=== PATIENT | female | born 1995 | race Caucasian/White ===

== ENCOUNTER 2019-06-21 17:29 | Emergency (ER) | payer BC, SELFPAY ==
[2019-06-21 17:32] VITALS: BP 122/76; PULSE 86; RESP 20; TEMP 36.9; O2SAT 100
[2019-06-21 18:00] VITALS: RESP 20
[2019-06-21] MEDS: LORazepam 2 MG/ML VIAL 1 MG IM/IV (18:21)
[2019-06-21 19:06] LABS: Abs Immature Grans 0.01 k/cumm (0.0-0.09); Absolute Basophil Count 0.02 k/cumm (0.0-0.2); Absolute Eosinophil Count 0.08 k/cumm (0.0-0.7); Absolute Lymphocyte Count 2.19 k/cumm (1.2-3.4); Absolute Monocyte Count 0.55 k/cumm (0.11-0.7); Absolute Neutrophil Count 3.34 k/cumm (1.2-6.7); Basophils % 0.3; Eosinophils % 1.3; HCT 40.3 % (36.0-46.0); HGB 13.9 g/dL (12.0-15.5); Immature Grans % 0.2; Lymphocytes % 35.4; Mean Corp. HGB Concentration 34.5 g/dL (32.0-36.0); Mean Corpuscular Hemoglobin 32.9 pg (27.0-33.0); Mean Corpuscular Volume 95.3 fL (80-95); Mean Platelet Volume 10.3 fL (8.0-11.0); Monocytes % 8.9; Neutrophils % 53.9; Platelet Count 274 x1000/uL (130-400); RBC 4.23 m/cumm (4.00-5.20); RBC Distribution Width 12.2 % (11.7-14.6); White Blood Cell Count 6.19 k/cumm (4.4-10.8)
[2019-06-21 19:12] LABS: Bilirubin Negative (Negative); Blood Negative (Negative); Clarity Clear (Clear); Glucose Negative (Negative); Ketones Negative (Negative); Leukocyte Esterase Negative (Negative); Nitrite Negative (Negative); Specific Gravity 1.015 (1.005-1.025); Urobilinogen 0.2 EU/dL (Up TO 0.2)
[2019-06-21 19:39] LABS: ALT 20 U/L (14-59); AST 12 U/L (15-37); Alkaline Phosphatase 77 U/L (46-116); Anion Gap 12.4 mmol/L (3-11); BUN 8 mg/dL (7-18); Bilirubin, Total 0.2 mg/dL (0.2-1.0); CO2 22.6 mmol/L (21.0-32.0); CREATININE 0.79 mg/dL (0.55-1.02); Calcium 9.1 mg/dL (8.5-10.1); Chloride 108 mmol/L (98-107); Glucose 94 mg/dL (70-100); Magnesium 1.8 mg/dL (1.8-2.4); Potassium 3.6 mmol/L (3.5-5.1); Sodium 143 mmol/L (136-145); TSH (W/Ref FT4) 2.23 uIU/mL (0.36-3.74); Total Protein 7.9 g/dL (6.4-8.2)
[2019-06-21 19:40] LABS: Troponin I < 0.05 ng/mL (0.00-0.06)
--- NOTE | 2019-06-21 19:53 | ED.GENADUL_ITS ---
Discharge Plan Disposition Patient Disposition: HOME Condition: Improving Discharge Details Chief Complaint: Anxiety Clinical Impression: Panic attack Primary Care Provider: None,None ED Provider: Ravinder Stephens Home Meds and New Rx's Prescriptions: New lorazepam [Ativan] 1 mg tablet 1 mg PO DAILY PRN (Reason: anxiety) Qty: 1 RF: 0 Continued venlafaxine [Effexor XR] 75 mg Capsule,Extended Release 24hr 75 mg PO DAILY RF: 0 zolpidem [Ambien] 10 mg Tablet 10 mg PO HS RF: 0 Nexplanon 68 mg Implant 68 mg SUBDERMAL RF: 0 Discharge Instructions Instructions: Panic Attack (ED) Additional Instructions: Please continue to take your medication as prescribed and use as needed Ativan for severe panic attack. Feel free to return to the emergency department for any new or significant worsening of symptoms otherwise follow-up with a primary care provider when you return home. Referrals: Primary Care Provider [Outside] - 1 week (Follow-up with a local primary care provider for reassessment of your panic disorder to see if you need any change in your medications.) Discharge Data Discharge Date/Time-TO BE ENTERED AT DEPARTURE: 06/21/19 20:07 Medical Decision Making Patient presenting the emergency department for chief complaint of panic attack. Patient states ongoing panic disorder and that she is appear visiting family for a second wedding medical reception and this morning when she awoke she felt panicky, tired, and tearful which is typical of her panic disorder. This evening when she was around a large group of family members she started feeling chest pressure, rapid breathing, and extremely tearful. Due to this she is presenting to the emergency department. Patient denies any specific pain or discomfort, shortness of breath, fever chills, or other symptoms. Physical exam shows a visibly anxious patient with otherwise unremarkable examination. Patient not tachycardic, not hypotensive, afebrile, not hypoxic. Plan to check EKG and labs but given patient's history feel that it is more than likely her ongoing panic disorder. Pending results patient given 1 mg IV Ativan Review of EKG with attending physician Dr. Tato Hinton shows sinus rhythm, rate of 84, slight rate variation is noted but no signs of STEMI. Review of labs shows unremarkable CBC, CMP with increased chloride and anion gap otherwise nondiagnostic, TSH within normal limits, negative troponin, unremarkable urine. Patient was reassessed and states significant improvement of her symptoms. Patient does state slight anxiety over her airplane trip tomorrow. Patient is very reasonable and I feel reliable so patient given dose for 1 tablet of Ativan to use as needed for any anxiety or panic attacks while on airplane otherwise patient was strongly encouraged to follow-up with her primary care provider when she returns home to [place]. Return precautions were discussed. After discussion of diagnosis and plan of care patient has no further needs, question s, or concerns and states clear understanding to return to the emergency department for any worsening symptoms. HPI General Mode of arrival: ambulatory . Date/Time Provider Initiated Documentation: 06/21/19 17:38 . Limitations to Documentation: no limitations . Information obtained by: patient, family and RN notes reviewed . History of Present Illness 24 year old F presents to the emergency department with the chief complaint of Panic attack, described as severe and similar to prior episodes, with intensity rated at 5. Quality is described as other (Chest heaviness), and is localized to the chest. Patient reports no radiation. Patient started experiencing this hour(s) (8) and it has been constant. Other factors that worsen symptoms (Being around large group of people) . Patient notes no other symptoms.. Patient did receive the following treatments prior to arrival, none Related Data Home Medications Medication Instructions Recorded Confirmed Nexplanon 68 mg SUBDERMAL 06/21/19 lorazepam [Ativan] 1 mg PO DAILY PRN #1 tab 06/21/19 venlafaxine [Effexor XR] 75 mg PO DAILY 06/21/19 06/21/19 zolpidem [Ambien] 10 mg PO HS 06/21/19 06/21/19 Previous Rx's Medication Instructions Recorded lorazepam [Ativan] 1 mg PO DAILY PRN #1 tab 06/21/19 Allergies Allergy/AdvReac Type Severity Reaction Status Date / Time No Known Allergies Allergy Unverified 06/21/19 18:47 General Stated Complaint: Anxiety PANCHO: 3 Review of Systems Constitutional Denies body ache(s), Denies chills and Denies fever(s) Cardiovascular Reports as per HPI, Reports chest pain, Denies syncope, Denies rapid heart rate, Denies lightheadedness, Denies palpitations and Denies dyspnea Respiratory Denies dyspnea Gastrointestinal Denies abdominal pain, Denies nausea and Denies vomiting Integumentary/Breasts Denies rash Neurologic Denies syncope and Denies sensory deficit Psychiatric Reports as per HPI, Reports anxiety and Reports panic attacks Endocrine Denies palpitations [facility] Social History Smoking/Tobacco Use Status: Never Alcohol Intake: current Alcohol Intake frequency: a few times a week Alcohol type: wine Substance use type: does not use Do you feel safe at home: Yes Do you feel safe in your relationship?: Yes Additional Social history: one glass of wine per week Exam Const General: cooperative, healthy appearing, well groomed, anxious, not diaphoretic, not ill appearing and does not appear intoxicated Orientation: alert, awake and oriented x3 HENMT Mouth: moist mucous membranes Neck Neck: normal visual inspection and full ROM Thyroid: thyroid normal Resp Effort & Inspection: normal respiratory effort, able to speak in complete sentences and no respiratory distress Cardio Rate: regular rate and not tachycardic Rhythm: regular rhythm Heart Sounds: S1 normal, no click, no gallops, no murmurs and no rubs Skin General skin exam: no rashes or lesions noted Neuro General: alert, awake, oriented x3, moves all extremities and no focal motor deficits Psych Appearance: grossly normal and well kempt Mental Status: mental status grossly normal Speech and Movement: speech and movement normal Mood: anxious mood Affect: sad Attitude: cooperative Thought Process: normal Thought Content: normal Insight: insight good Judgment: judgment good Course Vital Signs Temperature 36.9 C 06/21/19 17:32 Pulse 86 06/21/19 17:32 Respiratory Rate 20 06/21/19 17:32 Blood Pressure 122/76 06/21/19 17:32 Pulse Oximetry 100 06/21/19 17:32 Temperature 36.9 C 06/21/19 17:32 Temperature Source Skin 06/21/19 17:32 Pulse 86 06/21/19 17:32 Respiratory Rate 20 06/21/19 18:00 Respiratory Effort Non-Labored 06/21/19 18:50 Blood Pressure 122/76 06/21/19 17:32 Blood Pressure Position Sitting 06/21/19 17:32 Pulse Oximetry 100 06/21/19 17:32 Oxygen Delivery Method Room Air 06/21/19 17:32 Oxygen Flow Rate 0 06/21/19 17:32 Pain Level 4 06/21/19 17:32 Comment 06/21/19 17:32 Lab/Test Results Lab/Test Results: Laboratory Tests Range/Units 06/21/19 06/21/19 06/21/19 18:24 18:24 18:50 WBC (4.4-10.8) k/cumm 6.19 RBC (4.00-5.20) m/cumm 4.23 Hgb (12.0-15.5) g/dL 13.9 Hct (36.0-46.0) % 40.3 MCV (80-95) fL 95.3 H MCH (27.0-33.0) pg 32.9 MCHC (32.0-36.0) g/dL 34.5 RDW (11.7-14.6) % 12.2 Plt Count (130-400) x1000/uL 274 MPV (8.0-11.0) fL 10.3 Immature Gran % 0.2 Neutrophils % 53.9 Lymphocytes % 35.4 Monocytes % 8.9 Eosinophils % 1.3 Basophils % 0.3 Absolute Neutrophils (1.2-6.7) k/cumm 3.34 Absolute Lymphocytes (1.2-3.4) k/cumm 2.19 Absolute Monocytes (0.11-0.7) k/cumm 0.55 Absolute Eosinophils (0.0-0.7) k/cumm 0.08 Absolute Basophils (0.0-0.2) k/cumm 0.02 Sodium (136-145) mmol/L 143 Potassium (3.5-5.1) mmol/L 3.6 Chloride (98-107) mmol/L 108 H Carbon Dioxide (21.0-32.0) mmol/L 22.6 Anion Gap (3-11) mmol/L 12.4 H BUN (7-18) mg/dL 8 Creatinine (0.55-1.02) mg/dL 0.79 Estimated GFR/1.73 m2 (mL/min/1.73m2) >= 60.00 Glucose (70-100) mg/dL 94 Calcium (8.5-10.1) mg/dL 9.1 Magnesium (1.8-2.4) mg/dL 1.8 Total Bilirubin (0.2-1.0) mg/dL 0.2 AST (15-37) U/L 12 L ALT (14-59) U/L 20 Alkaline Phosphatase (46-116) U/L 77 Troponin I (0.00-0.06) ng/mL < 0.05 Total Protein (6.4-8.2) g/dL 7.9 Albumin (3.4-5.0) g/dL 4.0 TSH (0.36-3.74) uIU/mL 2.23 Urine Color (Yellow) Yellow Urine Clarity (Clear) Clear Urine pH (5-8) 8.0 Ur Specific [place] (1.005-1.025) 1.015 Urine Protein (Negative) mg/dL Negative Urine Ketones (Negative) mg/dL Negative Urine Blood (Negative) Negative Urine Nitrite (Negative) Negative Urine Bilirubin (Negative) Negative Urine Urobilinogen (Up TO 0.2) EU/dL 0.2 Ur Leukocyte Esterase (Negative) Negative Urine Glucose (Negative) mg/dL Negative POC- Test(urine) Negative
== END 2019-06-21 20:07 | disposition home or self-care (01) ==
PROVIDERS: Emergency Provider Nurse Practitioner Family
DX: F41.9 Anxiety disorder, unspecified (principal)
CPT/HCPCS: 36415; 80053; 81025; 93005; 99284; 81003; 83735; 84443; 84484; 85025; 93010; J2060; J3490